=== PATIENT | female | born 1960 | race Caucasian/White ===

== ENCOUNTER → 2019-04-21 | Outpatient (CLI) | payer OTHER, SELFPAY ==
[2019-04-21 12:22] LABS: Absolute Lymphocyte Count 1.86 X10^3/uL (0.83-4.51); Absolute Neutrophil Count 2.9 X10^3/uL (2.0-7.7); Basophil# 0.04 X10^3/uL; Basophil% 0.7 % (0-1); Eosinophil# 0.12 X10^3/uL; Eosinophils% 2.2 % (0-5); Hematocrit 38.1 % (37-47); Hemoglobin 12.3 g/dL (12.0-15.0); Lymphocyte # 1.86 X10^3/ul (4.0); Lymphocyte % 34.4 % (19-41); Mean Corp Hgb Conc 32.3 g/dL (32-36); Mean Corpuscular Hgb 27.4 pg (27.0-32.0); Mean Corpuscular Volume 84.9 fL (81-99); Monocyte# 0.51 X10^3/uL; Monocyte% 9.4 % (0-10); NRBC Flagged by Analyzer 0 % (0-5); Neutrophil # 2.86 X10^3/uL (2.7-7.7); Neutrophil % 52.9 % (47-70); Platelet Count 326 K/mm3 (150-450); RBC Distribution Width CV 15.3 % (11.6-14.6); RBC Distribution Width SD 46.6 fl (35.1-43.9); Red Blood Count 4.49 M/mm3 (4.2-5.4); White Blood Count 5.4 K/mm3 (4.4-11.0)
[2019-04-22 09:54] LABS: Vitamin B12 239 pg/mL (211-911)
== END | disposition home or self-care (01) ==
LOC: MFPLAB 10:29
PROVIDERS: Family Provider Family Medicine; PCP Family Medicine; Referring Provider Family Medicine; Visit Provider Family Medicine
DX: E53.8 Deficiency of other specified B group vitamins (principal)
CPT/HCPCS: 36415; 82607; 85025

== ENCOUNTER → 2019-05-21 | Outpatient (CLI) | payer OTHER, SELFPAY | END | disposition home or self-care (01) | LOC: MTLAB 10:07 | PROVIDERS: Family Provider Family Medicine; PCP Family Medicine; Referring Provider Internal Medicine Gastroenterology; Visit Provider Internal Medicine Gastroenterology | DX: E53.8 Deficiency of other specified B group vitamins (principal) | CPT/HCPCS: 36415; 83516; 86340 ==

== ENCOUNTER → 2019-06-16 | Outpatient (CLI) | payer OTHER, SELFPAY ==
--- NOTE | 2019-06-16 | IMM_PTH ---
PATIENT: PURNIMA SPENCE LOC: [facility] U#:[id number] AGE/SX: 59/F ROOM: RE06/16/[address]: Dr. Mac Baptiste MD : 1960 BED: DIS: 06/16/2019 SPEC #: [id number] RECD: 06/18/19 15:14 STATUS: TREVA REAleksandr #: [id number] LAUREN: 06/16/19 00:[address]: Mac Baptiste DEPT: IMMUNOHISTOCHEMISTRY RECD BY: Kinza Magaña ENTERED: 06/18/19 15:14 SP TYPE: IMMUNO OTHR DR: Dr. Saira Delvalle MD Tissues: Stomach, NOS Procedures: H Pylori (initial) PHYSICIAN & INSTITUTION [place] [address] SPECIMEN INFORMATION: Tissue Source: Gastric body biopsy Clinical Info: B12 deficiency Specimen Number: [id number] CPT code: 65730 METHODOLOGY: Deparaffinized sections of prefer/formalin-fixed tissue or PAP/DQ stained slides are incubated with monoclonal/polyclonal antibodies/oligonucleotide probes. Localization is made via biotin free immunoperoxidase method. Appropriate controls are performed and reacted as expected. Results on target cell population are indicated in the following table: RESULTS: ANTIBODY / CLONE RESULT H Pylori (polyclonal) negative These tests were developed and their performance characteristics determined by [facility]. They may not have been cleared or approved by the [place]. Food and Drug Administration. The FDA has determined that such clearance or approval is not necessary. INTERPRETATION: Gastric body biopsy: Negative for Helicobacter pylori organisms. AM:anderson 06/19/19
--- NOTE | 2019-06-16 11:01 | EGD_PTH ---
PATIENT: PURNIMA SPENCE LOC: [facility] U#:[id number] AGE/SX: 59/F ROOM: RE06/16/[address]: Dr. Mac Baptiste MD : 1960 BED: DIS: 06/16/2019 SPEC #: [id number] RECD: 06/16/19 15:09 STATUS: TREVA HILARIA #: [id number] LAUREN: 06/16/19 11:[address]: Mac Baptiste DEPT: SURGICAL PATHOLOGY RECD BY: Lrary Ford ENTERED: 06/17/19 13:32 SP TYPE: EGD BIOPSY OT DR: Dr. Saira Delvalle MD [facility] Tissues: Gastric mucous membrane Procedures: Surgery Specimen Level IV HEADER OPERATION: EGD with biopsies PRE-OP DIAGNOSIS: B12 deficiency TISSUE SUBMITTED: Gastric body biopsies, rule out atrophic gastritis MICROSCOPIC DIAGNOSIS Gastric mucosa, biopsy: Mild chronic gastritis. Focal changes of fundic gland polyp. See comment. AM:anderson 06/18/19 COMMENT The results of immunohistochemistry for Helicobacter pylori will be reported separately ([id number]). MICROSCOPIC DESCRIPTION Slides are reviewed. GROSS DESCRIPTION Received in fixative is one container labeled with the patient's name and designated gastric body biopsy. The specimen consists of multiple irregular fragments of light peck soft tissue that in aggregate measure 1 x 0.5 x 0.1 cm. The specimen is totally submitted in one cassette. / SJ:anderson 06/17/19 TC:3 CPT: 83615
== END | disposition home or self-care (01) ==
LOC: LABSPEC 15:28
PROVIDERS: Family Provider Family Medicine; PCP Family Medicine; Referring Provider Internal Medicine Gastroenterology; Visit Provider Internal Medicine Gastroenterology
DX: E53.8 Deficiency of other specified B group vitamins (principal)
CPT/HCPCS: 88305; 88342